=== PATIENT | male | born 1955 | race Caucasian/White ===

== ENCOUNTER 2021-03-20 21:33 | Emergency (ER) | payer MEDICARE, MEDICAID ==
[~2021-03-20] VITALS: Ht 177 cm; Wt 69.4 kg
--- OUTSIDE RECORDS SUMMARY | 2021-03-20 21:39 | XMS REPORT | Clinical Summary ---
Author Author [facility] Organization [facility] Address Unknown Phone Unavailable Care Team Providers Care Cylinder Dyer Name Role Phone Pcp, No PP Unavailable Allergies Comments Active Allergy Reactions Severity Noted Date Rash 09-29-18: Can use Toujeo product Insulin Glargine Rash High 06/23/2018 Rash Insulin Lispro Rash High 06/23/2018 No Known Drug Allergies Medications End Date Status Medication Sig Dispensed Refills Start Date Active blood sugar diagnostic three times a 0 04/27/2 day before 9 meals and at bedtime Patient will use 4 per day: fasting, before lunch and supper and bedtime. Active lancets 33 gauge misc 1 each by 0 04/27/19 1 Other route. 9 Active pen needle, diabetic 32 Inject 1 each 0 gauge x 5/32" needle under the 9 skin. Active tamsulosin (FLOMAX) 0.4 Take 0.4 mg 0 mg capsule by mouth 1 (one) time each day. Active insulin aspart, Inject 8 6 mL 0 niacinamide, (Fiasp Units under 0 FlexTouch U-100 Insulin) the skin 3 100 unit/mL (3 mL) (three) times insulin penIndications: per day Type 2 diabetes mellitus before meals. with hyperglycemia, with Hold for BG long-term current use of less than 100 insulin (HCC) Active insulin degludec (Tresiba Inject 6 3 mL 0 FlexTouch U-200) 200 Units under 0 unit/mL (3 mL) insulin the skin penIndications: Type 2 every night. diabetes mellitus with Hold for BG hyperglycemia, with less than 100 long-term current use of insulin (HCC) Active Problems Problem Noted Date Type 2 diabetes mellitus, with long-term current use of insulin 09/29/2018 Last Assessment & Plan: Formatting of this note might be differ ent from the original. Diabetes is uncontrolled, labs are over due. Reminded to bring in blood sugar diary at next visit. Dietary recommendations for ADA diet. Regular aerobic exercise. Discussed ways to avoid symptomatic hyp oglycemia. Discussed sick day management. Discussed foot care. Reminded to get yearly retinal exam. Medication changes per orders. Diabetes will be reassessed in 3 months . Cellulitis of right lower extremity 09/28/2018 Rash and other nonspecific skin eruption 06/23/2018 BPH with urinary obstruction 05/05/2018 BPH with urinary obstruction 05/05/2018 Abdominal pain 04/24/2018 Diabetes mellitus type 2, uncontrolled 04/24/2018 Methamphetamine abuse 04/24/2018 Overflow incontinence 04/24/2018 Tobacco abuse 04/24/2018 Immunizations Name Administration Dates Next Due Influenza (IM) 04/27/2018 Preservative Free Family History Medical History Relation Name Comments Cancer Brother Lung Cancer Brother Brain Diabetes Brother Diabetes Brother Stroke Father Cancer Mother Renal with mets Diabetes Mother Cancer Sister Lung Relation Name Status Comments Brother Brother Brother Brother Father Mother Sister Social History Date Tobacco Use Types Packs/Day Years Used Current Every Day Smoker Cigarettes 0.5 Smokeless Tobacco: Never Used Comments Alcohol Use Standard Drinks/Week No 0 (1 standard drink = 0.6 o z pure alcohol) Sex Assigned at Date Recorded Not on file Industry Job Start Date Occupation Not on file Not on file Not on file Last Filed Vital Signs Reading Time Taken Comments Vital Sign 120/68 06/25/2020 1:14 PM 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 Blood Pressure 107 06/25/2020 1:14 PM 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 Pulse 36.9 C (98.5 F) 11/05/2018 9:51 AM CDT Temperature 20 11/05/2018 5:30 PM CDT Respiratory Rate 97% 06/25/2020 1:14 PM 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 Oxygen Saturation - - Inhaled Oxygen Concentration 69.4 kg (153 lb) 06/25/2020 1:14 PM 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 Weight 177.8 cm (5' 10") 06/25/2020 1:14 PM 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 Height 21.95 06/25/2020 1:14 PM 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 Body Mass Index Plan of Treatment Care Team Description Date Type Specialty Arcelia Mckeon, [employer] H[employer]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 TEACHER [address] [facility] [address] [place] [address] 04/22/2021 Office Visit Health Maintenance Due Date Last Done Comments CT Colonography 1955 Cologuard 1955 Colonoscopy 1955 Colorectal Cancer 1955 Screening Medicare Wellness 1955 MMR Vaccines (1 of 1 - 10/19/1956 Standard series) Varicella Vaccines (1 of 10/19/1956 2 - 2-dose childhood series) Pneumococcal 65+ Yr (1 of 10/19/1961 2 - PPSV23) Ophthalmology Exam 10/19/1965 COVID-19 Vaccine (1) 1967 Depression Screening 1967 DTaP,Tdap,and Td Vaccines 10/19/1974 (1 - Tdap) FOBT/FIT 10/19/2000 Sigmoidoscopy 10/19/2000 Zoster Vaccines (1 of 2) 10/19/2005 Lipid Panel 04/25/2019 04/25/2018 Foot Exam 05/26/2019 05/26/2018 Hemoglobin A1C 06/14/2020 12/13/2019, 10/01/2018, 04/25/2018, Additional history exists Abdominal Aortic Aneurysm 10/19/2020 (AAA) Screen Glaucoma Screening 65+ Yr 10/19/2020 Urine Microalbumin 12/12/2020 12/13/2019 Influenza Vaccine (#1) 2020 04/27/2018 HIB Vaccines Aged Out No longer eligible based on patient's age to complete this topic HPV Vaccines Aged Out No longer eligible based on patient's age to complete this topic Hepatitis A Vaccines Aged Out No longer eligibl e based on patient's age to complete this topic Hepatitis B Vaccines Aged Out No longer eligibl e based on patient's age to complete this topic IPV Vaccines Aged Out No longer eligible based on patient's age to complete this topic Meningococcal Vaccine Aged Out No longer eligib le based on patient's age to complete this topic Results Not on filefrom Last 3 Months Additional Health Concerns Onset Date Last Indicated Infection 11/05/2018 11/05/2018 MRSA 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
--- OUTSIDE RECORDS SUMMARY | 2021-03-20 21:39 | XMS REPORT | Clinical Summary ---
Author Author [facility] Address Unknown Phone Unavailable Care Team Providers Care Report Analyst Name Role Phone PCP Unavailable Allergies Not on File Medications Not on file Active Problems Not on file Social History Date Tobacco Use Types Packs/Day Years Used Never Assessed Sex Assigned at Date Recorded Not on file Last Filed Vital Signs Not on file Plan of Treatment Health Maintenance Due Date Last Done Comments COVID-19 Vaccine (1) 1967 Hepatitis C Screening 10/19/1973 DTaP,Tdap,and Td Vaccines 10/19/1974 (1 - Tdap) Colon Cancer Screening 10/19/2005 Zoster Vaccine (1 of 2) 10/19/2005 Pneumo-Vaccine: 65+Yrs (1 10/19/2020 of 1 - PPSV23) Influenza Vaccine (#1) 2020 HIB Vaccines Aged Out No longer eligible based on patient's age to complete this topic IPV Vaccines Aged Out No longer eligible based on patient's age to complete this topic Meningococcal Vaccine Aged Out No longer eligib le based on patient's age to complete this topic Pneumo-Vaccine: Peds (0-5 Aged Out No longer el igible based on patient's age to Yrs) & At-Risk Patients complete this topic (6-64 Yrs) Rotavirus Vaccines Aged Out No longer eligible based on patient's age to complete this topic Results Not on filefrom Last 3 Months
--- OUTSIDE RECORDS SUMMARY | 2021-03-20 21:39 | XMS REPORT | Clinical Summary ---
Author Author [facility] Health Organization [facility] Address Unknown Phone Unavailable Care Team Providers Care Principal Investigator Name Role Phone Jeancarlos Mora PELLET PRESS OPERATOR PCP Source Comments [facility] (Labor and Delivery) documents [facility] Allergies Comments Active Allergy Reactions Severity Noted Date Rash Insulin Glargine Rash High 06/23/2018 Rash Insulin Lispro Rash High 06/23/2018 Medications * Please verify current medications with patient. End Date Status Medication Sig Dispensed Refills Start Date Active terazosin (HYTRIN) 5 mg Take 5 mg by 0 capsule 0 0 capsule mouth at 9 bedtime Additional Information Patient taking differently: 5 mg Oral EVERY BEDTIME, Indications: relax the prostate, Reported on 05/03/2018 Active Blood Sugar Diagnostic three times a 150 each 3 0 (TRUE METRIX GLUCOSE TEST day before 9 STRIP) glucose strips meals and at bedtime Patient will use 4 per day: fasting, before lunch and supper and bedtime. Active lancets (TRUEPLUS Use 1 each as 150 each 3 LANCETS) 33 gauge misc directed by 9 physician four times a day Patient will use 4 per day. Active Insulin Marion, Inject 1 each 150 each 2 04/27/2 Disposable, (RELION PEN just under 9 NEEDLES) 32 gauge x 5/32" the skin four ndle times a day Active ressmemlws-gjugu-u.blue-s Take 1 tablet 6 tablet 0 alicylt-naphos 81-0.12 mg by mouth two 9 tablet (URELLE) tablet times a day, as needed for Bladder Spasm (pain) Active HYDROcodone-acetaminophen Take 1 tablet 12 tablet 0 , 5-325 mg/tab, (NORCO) by mouth 9 per tablet every six hours, as needed for Pain Active TOUJEO SOLOSTAR U-300 Inject 39 4.5 mL 6 INSULIN 300 unit/mL (1.5 Units just 9 mL) injection pen under the skin at bedtime Hold for BG less than 100 Active glipiZIDE (GLUCOTROL) 5 Take 5 mg 60 tablet 5 mg tablet with 9 breakfast and 5 mg with supper. Hold for BG <110 Active APIDRA SOLOSTAR U-100 Pt not taking 15 mL 6 INSULIN 100 unit/mL 06/23 per 9 insulin pen Myrna.Inject 16 units with breakfast and 14 units with lunch and 18 units with dinner, hold for BG less than 100 Active Problems Problem Noted Date Rash in adult 06/23/2018 BPH with urinary obstruction 05/05/2018 Abdominal pain 04/24/2018 Diabetes mellitus type 2, uncontrolled 04/24/2018 Methamphetamine abuse 04/24/2018 Overflow incontinence 04/24/2018 Tobacco abuse 04/24/2018 Immunizations Name Administration Dates Next Due flu vaccine,6 month 04/27/2018 +,quad, PF,0.5 mL syringe/single dose vial Family History Medical History Relation Comments Cancer Brother 1 Lung Diabetes Brother 1 Cancer Brother 2 Brain Diabetes Brother 2 Stroke Father Cancer Mother Renal with mets Diabetes Mother Cancer Sister Lung Relation Status Comments Brother 1 Brother 2 Father Mother Sister Social History Date Tobacco Use Types Packs/Day Years Used Current Every Day Smoker Cigarettes 0.25 44 Smokeless Tobacco: Never Used Tobacco Cessation: Ready to Quit: Yes Comments Alcohol Use Standard Drinks/Week No 0 (1 standard drink = 0.6 o z pure alcohol) Sex Assigned at Date Recorded Not on file Last Filed Vital Signs Reading Time Taken Comments Vital Sign 120/78 06/23/2018 10:25 AM ENTERPRISE SYSTEMS ARCHITECT Blood Pressure 77 06/23/2018 10:25 AM ENTERPRISE SYSTEMS ARCHITECT Pulse 36.2 C (97.2 F) 05/27/2018 10:47 AM ENTERPRISE SYSTEMS ARCHITECT Temperature 16 05/27/2018 1:15 PM ENTERPRISE SYSTEMS ARCHITECT Respiratory Rate 99% 06/23/2018 10:25 AM ENTERPRISE SYSTEMS ARCHITECT Oxygen Saturation - - Inhaled Oxygen Concentration 82.6 kg (182 lb) 06/23/2018 10:25 AM ENTERPRISE SYSTEMS ARCHITECT Weight 177.8 cm (5' 10") 06/23/2018 10:25 AM ENTERPRISE SYSTEMS ARCHITECT Height 26.11 06/23/2018 10:25 AM ENTERPRISE SYSTEMS ARCHITECT Body Mass Index Plan of Treatment Health Maintenance Due Date Last Done Comments AAA (Abdominal Aortic 1955 Aneurysm) Imaging CT Colonography 1955 Colonoscopy 1955 Colorectal Cancer 1955 Screening DNA-based stool test 1955 (Cologuard) Diabetes Retinopathy Exam 1955 Diabetes Urine Protein 1955 Screening Sigmoidoscopy 1955 gFOBT or FIT 1955 Pneumococcal Vaccine: 65+ 10/19/1961 Years (1 of 2 - PPSV23) Pneumococcal Vaccine: 10/19/1961 Pediatrics (0 to 5 Years) and At-Risk Patients (6 to 64 Years) (1 of 2 - PPSV23) COVID-19 Vaccine (1) 1967 Diabetes HgbA1C Testing 10/23/2018 04/25/2018, 04/23/2018 Lipid Panel 04/25/2019 04/25/2018 Diabetes Foot Exam 05/26/2019 05/26/2018 Influenza Vaccine (#1) 2020 04/27/2018 HPV Vaccine Aged Out No longer eligible based on patient's age to complete this topic Hepatitis A Vaccine Aged Out No longer eligible based on patient's age to complete this topic Hepatitis B Vaccine Aged Out No longer eligible based on patient's age to complete this topic Hib Vaccine Aged Out No longer eligible based on patient's age to complete this topic IPV Vaccine Aged Out No longer eligible based on patient's age to complete this topic Meningococcal Vaccine Aged Out No longer eligib le based on patient's age to (MCV4) complete this topic Rotavirus Vaccine Aged Out No longer eligible based on patient's age to complete this topic Results Not on filefrom Last 3 Months 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
[2021-03-20 21:53] LABS: BILIRUBIN,URINE NEGATIVE (NEGATIVE); CLARITY,URINE CLOUDY; COLOR,URINE YELLOW; GLUCOSE, URINE (UA) 2+ (NEGATIVE); KETONES,URINE NEGATIVE (NEGATIVE); LEUKOCYTE ESTERASE ,URINE 2+ (NEGATIVE); NITRITE,URINE NEGATIVE (NEGATIVE); PROTEIN,URINE TRACE (NEGATIVE)
[2021-03-20] MEDS ORDERED: fentaNYL INJ 100 MCG/2 ML AMP IVP ONE (22:00)
[2021-03-20 22:03] LABS: BACTERIA,URINE NEGATIVE /HPF; SQUAMOUS EPITHELIAL CELL,UR RARE /HPF; WBC,URINE 25-50 /HPF
[2021-03-20 22:04] LABS: YEAST,URINE LARGE /HPF
[2021-03-20 22:06] LABS: BASOPHILS % (AUTO) 1 % (0-10); EOSINOPHILS % (AUTO) 1 % (0-10); HEMATOCRIT 45 % (40-54); HEMOGLOBIN 15.5 g/dL (13.3-17.7); LYMPHOCYTES % (AUTO) 30 % (12-44); MEAN CORPUSCULAR HEMOGLOBIN 30 pg (25-34); MEAN CORPUSCULAR HGB CONC 35 g/dL (32-36); MEAN CORPUSCULAR VOLUME 88 fL (80-99); MEAN PLATELET VOLUME 9.1 fL (9.0-12.2); MONOCYTES % (AUTO) 10 % (0-12); NEUTROPHILS % (AUTO) 58 % (42-75); PLATELET COUNT 299 10^3/uL (130-400); WHITE BLOOD COUNT 7.3 10^3/uL (4.3-11.0)
[2021-03-20 22:07] LABS: BASOPHILS # (AUTO) 0.1 10^3/uL (0.0-0.1); EOSINOPHILS # (AUTO) 0.1 10^3/uL (0.0-0.3); LYMPHOCYTES # (AUTO) 2.2 X 10^3 (1.0-4.0); MONOCYTES # (AUTO) 0.7 X 10^3 (0.0-1.0); NEUTROPHILS # (AUTO) 4.2 X 10^3 (1.8-7.8)
--- NOTE | 2021-03-20 22:08 | ED Abdominal Pain ---
General Chief Complaint: Abdominal/GI Problems Stated Complaint: PELVIC/LOWER ABD SWELLING/PAIN Nursing Triage Note: Pt c/o lower abd pain and swelling. Denies n/v/d but does reports constipation. Source of Information: Patient Exam Limitations: No Limitations History of Present Illness Date Seen by Provider: Mar 20, 2021 Time Seen by Provider: 21:37 Initial Comments This 65-year-old gentleman presents to the emergency room via private vehicle with complaints of pain and swelling in the right inguinal region. He reports hernia in this area since childhood. He states he was advised to have this repaired but he never followed through because symptoms did not remain constant. 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 He notes inability to have a bowel movement for the past 2 days. He has pain with straining to have a bowel movement. Pain radiates into the right scrotal area. He denies fever or chills, vomiting, nausea, constipation, or urinary changes. He rates his pain a 7 out of 10. Allergies and Home Medications Allergies Coded Allergies: insulin lispro (Verified Allergy, Unknown, 03/20/21) insulin lispro protamine (Verified Allergy, Unknown, 03/20/21) Patient Home Medication List Home Medication List Reviewed: Yes Cefdinir (Cefdinir) 300 Mg Capsule, 300 MG PO BID Prescribed by: SHEILA PECK on 03/20/21 233 Doxycycline Hyclate (Doxycycline Hyclate) 100 Mg Tablet, 100 MG PO BID Prescribed by: SHEILA PECK on 03/20/212331 Review of Systems Review of Systems Constitutional: no symptoms reported EENTM: No Symptoms Reported Respiratory: No Symptoms Reported Cardiovascular: No Symptoms Reported Gastrointestinal: See HPI Genitourinary: See HPI Musculoskeletal: no symptoms reported Skin: no symptoms reported Psychiatric/Neurological: No Symptoms Reported Endocrine: No Symptoms Reported Hematologic/Lymphatic: No Symptoms Reported Past Diqtfpp-Egzqnd-Xelktx Hx Patient Social History Tobacco Use?: Yes Tobacco type used: Cigarettes Smoking Status: Current Everyday Smoker Use of E-Cig and/or Vaping dev: No Substance use?: No Alcohol Use?: No Pt feels they are or have been: No Immunizations Up To Date Influenza Vaccine Up-to-Date: No; Not Current First/Initial COVID19 Vaccinat: denies Past Medical History Surgeries: Yes Bladder Surgery, Prostatectomy (TURP or laser reduction) Respiratory: No Cardiac: No Neurological: No Genitourinary: Yes Benign Prostatic Hyperpl, Prostate Problems Gastrointestinal: Yes Abdominal Hernia (Right inguinal region) Musculoskeletal: No Endocrine: Yes Diabetes, Non-Insulin dep Cancer: No Psychosocial: No Integumentary: No Physical Exam Vital Signs Vital Signs - First Documented 03/20/21 21:37 Temp 36.8 Pulse 93 Resp 17 B/P (MAP) 155/94 (114) Pulse Ox 99 O2 Delivery Room Air Capillary Refill : Height/Weight/BMI Height: '" Weight: lbs. oz. kg; 22.00 BMI Method: General Appearance: WD/WN, mild distress HEENT: normal ENT inspection Neck: normal inspection Respiratory: lungs clear, normal breath sounds, no respiratory distress Cardiovascular: regular rate, rhythm, no edema, no murmur Gastrointestinal: soft, tenderness (Right lower quadrant in the suprapubic region extending over the pubis and into the right scrotum) Extremities: normal inspection, no pedal edema Male: other (Tenderness and erythema extending from the suprapubic region through to the proximal scrotum on the right) Neurologic/Psychiatric: behavioral sciences department chair II-XII nml as tested, no motor/sensory deficits, alert, normal mood/affect, oriented x 3 Skin: normal color, warm/dry, other (As above) Progress/Results/Core Measures Results/Orders Lab Results Laboratory Tests Test 03/20/21 21:38 03/20/21 21:50 Range/Units Urine Color YELLOW Urine Clarity CLOUDY Urine pH 6.0 5-9 Urine Specific [place] 1.025 H 1.016-1.022 Urine Protein TRACE H NEGATIVE Urine Glucose (UA) 2+ H NEGATIVE Urine Ketones NEGATIVE NEGATIVE Urine Nitrite NEGATIVE NEGATIVE Urine Bilirubin NEGATIVE NEGATIVE Urine Urobilinogen 0.2 < = 1.0 MG/DL Urine Leukocyte Esterase 2+ H NEGATIVE Urine RBC (Auto) 1+ H NEGATIVE Urine RBC NONE /HPF Urine WBC 25-50 H /HPF Urine Squamous Epithelial Cells RARE /HPF Urine Crystals NONE /LPF Urine Bacteria NEGATIVE /HPF Urine Casts NONE /LPF Urine Mucus NEGATIVE /LPF Urine Yeast LARGE H /HPF Urine Culture Indicated YES White Blood Count 7.3 4.3-11.0 10^3/uL Red Blood Count 5.10 4.30-5.52 10^6/uL Hemoglobin 15.5 13.3-17.7 g/dL Hematocrit 45 40-54 % Mean Corpuscular Volume 88 80-99 fL Mean Corpuscular Hemoglobin 30 25-34 pg Mean Corpuscular Hemoglobin Concent 35 32-36 g/dL Red Cell Distribution Width 12.1 10.0-14.5 % Platelet Count 299 130-400 10^3/uL Mean Platelet Volume 9.1 9.0-12.2 fL Immature Granulocyte % (Auto) 0 % Neutrophils (%) (Auto) 58 42-75 % Lymphocytes (%) (Auto) 30 12-44 % Monocytes (%) (Auto) 10 0-12 % Eosinophils (%) (Auto) 1 0-10 % Basophils (%) (Auto) 1 0-10 % Neutrophils # (Auto) 4.2 1.8-7.8 X 10^3 Lymphocytes # (Auto) 2.2 1.0-4.0 X 10^3 Monocytes # (Auto) 0.7 0.0-1.0 X 10^3 Eosinophils # (Auto) 0.1 0.0-0.3 10^3/uL Basophils # (Auto) 0.1 0.0-0.1 10^3/uL Immature Granulocyte # (Auto) 0.0 0.0-0.1 10^3/uL Sodium Level 135 135-145 MMOL/L Potassium Level 3.7 3.6-5.0 MMOL/L Chloride Level 100 98-107 MMOL/L Carbon Dioxide Level 25 21-32 MMOL/L Anion Gap 10 5-14 MMOL/L Blood Urea Nitrogen 19 H 7-18 MG/DL Creatinine 0.93 0.60-1.30 MG/DL Estimat Glomerular Filtration Rate 82 BUN/Creatinine Ratio 20 Glucose Level 146 H 70-105 MG/DL Calcium Level 9.3 8.5-10.1 MG/DL Corrected Calcium 9.3 8.5-10.1 MG/DL Total Bilirubin 0.9 0.1-1.0 MG/DL Aspartate Amino Transf (AST/SGOT) 26 5-34 U/L Alanine Aminotransferase (ALT/SGPT) 30 0-55 U/L Alkaline Phosphatase 93 40-136 U/L Total Protein 7.7 6.4-8.2 GM/DL Albumin 4.0 3.2-4.5 GM/DL My Orders Orders - SHEILA AMEZQUITA MD Cbc With Automated Diff (03/20/21 21:46) Comprehensive Metabolic Panel (03/20/21 21:46) Ua Culture If Indicated (03/20/21 21:46) Ed Iv/Invasive Line Start (03/20/21 21:46) Fentanyl Inj (Sublimaze Injection) (03/20/21 22:00) Ct Abdomen/Pelvis W (03/20/21 21:47) Urine Culture (03/20/21 21:38) Iohexol Injection (Omnipaque 350 Mg/Ml 1 (03/20/21 22:15) Received Contrast (Hold Metformin- Contr (03/20/21 22:15) Sodium Chloride Flush (Catheter Flush Sy (03/20/21 22:15) Ns (Ivpb) (Sodium Chloride 0.9% Ivpb Bag (03/20/21 22:15) Chlamydia Trachomatis Urine (03/20/21 23:21) Neis Sudarshan Dna Urine Test (03/20/21 23:21) Ketorolac Injection (Toradol Injection) (03/20/21 23:30) Azithromycin Tablet (Zithromax Tablet) (03/20/21 23:30) Ceftriaxone (Rocephin) (03/20/21 23:30) Medications Given in ED Current Medications Medications Dose Ordered Sig/Maggie Route Start Time Stop Time Status Last Admin Dose Admin Azithromycin 500 mg ONCE ONCE PO 03/20/21 23:30 12 23:31 DC 03/20/21 23:32 500 MG Ceftriaxone Sodium 1000 mg/ Sterile Water 5 ml @ 60 mls/hr ONCE ONCE IV 03/20/21 23:30 03/21/21 00:07 DC 03/20/21 23:30 60 MLS/HR Fentanyl Citrate 50 mcg ONCE ONCE IVP 03/20/21 22:00 03/20/21 22:01 DC 03/20/21 21:56 50 MCG Iohexol 100 ml ONCE ONCE IV 03/20/21 22:15 03/20/21 22:38 DC 03/20/21 22:59 100 ML Ketorolac Tromethamine 15 mg ONCE ONCE IVP 03/20/21 23:30 03/20/21 23:31 DC 03/20/21 23:28 15 MG Sodium Chloride 10 ml NEEDED PRN IV 03/20/21 22:15 03/20/21 23:00 10 ML Sodium Chloride 100 ml ONCE ONCE IV 03/20/21 22:15 03/20/21 22:38 DC 03/20/21 23:00 80 ML Vital Signs/I&O 03/20/21 03/20/21 21:37 23:55 Temp 36.8 Pulse 93 66 Resp 17 15 B/P (MAP) 155/94 (114) 154/80 Pulse Ox 99 97 O2 Delivery Room Air Room Air Blood Pressure Mean: 114 Progress Progress Note #1: Time: 22:00 Progress Note Patient was seen and evaluated. There is no obvious hernial incarceration on exam but he does have tenderness throughout the right inguinal canal region and into the superior aspect of the scrotum. His pain is being treated with fentanyl and he will be further evaluated with blood work and CT scan. Progress Note #2: Progress Note Labs were unremarkable. Urinalysis suggested urinary tract infection. CT scan revealed only fat contained within the right inguinal hernia. The bladder wall was thickened with inflammatory response and appeared to be somewhat distended given patient's recent void. Patient was asked to void again and bladder scan was obtained. He was retaining about 250 mL on the scan. He was treated with Rocephin and azithromycin. These medications were chosen as he is sexually active. Pain was further treated with Toradol. Patient is not presently taking Flomax. This will be prescribed. Antibiotics are also being further prescribed. He was advised to follow-up with a primary care provider and/or urologist as soon as possible. He was provided with some contact information for those providers. Diagnostic Imaging Diagonstic Imaging: CT Plain Films/CT/US/NM/MRI: abdomen, pelvis Comments NAME: CAR[facility]AD[facility] REC#: [id number] PT STATUS: REG ER : 1955 PHYSICIAN: SHEILA AMEZQUITA MD ADMIT DATE: 03/20/21/ER FS Signed Date of Exam:03/20/21 CT ABDOMEN/PELVIS W PROCEDURE: CT abdomen and pelvis with contrast. TECHNIQUE: Multiple contiguous axial images were obtained through the abdomen and pelvis after administration of intravenous contrast. Auto Exposure Controls were utilized during the CT exam to meet ALARA standards for radiation dose reduction. All CT scans use one or more of the following dose optimizing techniques: automated exposure control, MA and/or KvP adjustment based on patient size and exam type or iterative reconstruction. INDICATION: Right lower quadrant pain Lung bases are clear. Liver appears normal. Gallbladder appears normal. Pancreas appears normal. Spleen appears normal. Adrenals appear normal. Kidneys appear normal. Small bowel is not dilated. The appendix is normal. Colon is normal. Prostate is enlarged. Urinary bladder wall is thickened. There is no intraperitoneal free air or free fluid. IMPRESSION: Enlarged prostate. There is urinary bladder wall thickening which may be from urinary retention from prostatic hypertrophy. Cystitis cannot be excluded. There is a small right fatty inguinal hernia. Dictated by: Dictated on workstation # [id number] Dict: 03/20/212324 Trans: 03/20/212327 TCB [id number] Interpreted by: SANDEEP REID MD Electronically signed by: SANDEEP REID MD 03/20/212327 Departure Impression Primary Impression: Urinary tract infection Qualified Codes: N39.0 - Urinary tract infection, site not specified Additional Impressions: Scrotal pain Right inguinal hernia Urinary retention Disposition: HOME, SELF-CARE Condition: Improved Departure-Patient Inst. Decision time for Depature: 23:31 Add. Discharge Instructions: Discharge orders were handwritten during [facility] downtime. All discharge instructions reviewed with patient and/or family. Voiced understanding. Scripts Tamsulosin HCl (Flomax) 0.4 Mg Cap 0.4 MG PO DAILY, #30 CAP Prov: SHEILA AMEZQUITA MD 03/21/21 Doxycycline Hyclate (Doxycycline Hyclate) 100 Mg Tablet 100 MG PO BID, #20 TAB 0 Refills Prov: SHEILA AMEZQUITA MD 03/20/21 Cefdinir (Cefdinir) 300 Mg Capsule 300 MG PO BID, #20 CAP Prov: SHEILA AMEZQUITA MD 03/20/21 SHEILA AMEZQUITA MD Mar 20, 2021 22:08
[2021-03-20] MEDS ORDERED: IOHEXOL 350 MG/ML 100 ML (OMNIPAQUE 350) VIAL IV ONE (22:15)
[2021-03-20] MEDS ORDERED: HOLD METFORMIN - RECEIVED CONTRAST 20 ML VIAL IV SCH (22:15)
[2021-03-20] MEDS ORDERED: NS 100 ML (IVPB) BAG IV ONE (22:15)
[2021-03-20] MEDS ORDERED: CATHETER FLUSH 10 ML SYR IV PRN (22:15)
[2021-03-20 22:28] LABS: BILIRUBIN,TOTAL 0.9 MG/DL (0.1-1.0); CALCIUM 9.3 MG/DL (8.5-10.1); CREATININE SERUM 0.93 MG/DL (0.60-1.30); POTASSIUM 3.7 MMOL/L (3.6-5.0); TOTAL PROTEIN 7.7 GM/DL (6.4-8.2)
--- NOTE | 2021-03-20 23:29 | Diagnostic Imaging Report ---
PROCEDURE: CT abdomen and pelvis with contrast. TECHNIQUE: Multiple contiguous axial images were obtained through the abdomen and pelvis after administration of intravenous contrast. Auto Exposure Controls were utilized during the CT exam to meet ALARA standards for radiation dose reduction. All CT scans use one or more of the following dose optimizing techniques: automated exposure control, MA and/or KvP adjustment based on patient size and exam type or iterative reconstruction. INDICATION: Right lower quadrant pain Lung bases are clear. Liver appears normal. Gallbladder appears normal. Pancreas appears normal. Spleen appears normal. Adrenals appear normal. Kidneys appear normal. Small bowel is not dilated. The appendix is normal. Colon is normal. Prostate is enlarged. Urinary bladder wall is thickened. There is no intraperitoneal free air or free fluid. IMPRESSION: Enlarged prostate. There is urinary bladder wall thickening which may be from urinary retention from prostatic hypertrophy. Cystitis cannot be excluded. There is a small right fatty inguinal hernia. Dictated by: Dictated on workstation # [id number]
[2021-03-20] MEDS ORDERED: KETOROLAC 30 MG/ML VIAL IVP ONE (23:30)
[2021-03-20] MEDS ORDERED: cefTRIAXone 1,000 MG in WATER (STERILE) FOR INJECTION 5 ML IV ONE (23:30)
[2021-03-20] MEDS ORDERED: AZITHROMYCIN 250 MG TAB (ZITHROMAX) PO ONE (23:30)
[2021-03-20] MEDS ORDERED: DOXY100T2 PO (23:32)
[2021-03-20] MEDS ORDERED: CEFD300C3 PO (23:32)
[2021-03-20 23:55] VITALS: BP 154/80
[2021-03-21] MEDS ORDERED: TMSL.4C PO (01:52)
== END 2021-03-20 23:55 | disposition home or self-care (01) ==
LOC: ER FS 21:36
DX: N39.0 Urinary tract infection, site not specified (principal); N50.82 Scrotal pain; K40.90 Unilateral inguinal hernia, without obstruction or gangrene, not specified as recurrent; R33.9 Retention of urine, unspecified; E11.9 Type 2 diabetes mellitus without complications; F17.210 Nicotine dependence, cigarettes, uncomplicated
CPT/HCPCS: 36415; 74177; 80053; 81000; 85025; 87088; 87491; 87591